=== PATIENT | female | born 1975 | race African-American/Black ===

== ENCOUNTER → 2019-12-21 12:12 | Outpatient (CLI) | payer OTHER, SELFPAY ==
--- NOTE | 2019-12-21 | DI.MRI.S_ITS ---
PROCEDURE: MR FOOT RT WO CON INDICATIONS: Contusion of right foot TECHNIQUE: Noncontrast sagittal T1 spin echo and T2 fast spin echo with fat saturation, long-axis T1 spin echo and T2 fast spin echo with fat saturation, short-axis T1 spin echo and T2 fast spin echo with fat saturation through the forefoot. COMPARISON: None. FINDINGS: Image quality: Excellent. Bones and joints: There is a region of localized bone marrow edema within the medial aspect of the 1st metatarsal head. There is mild bone marrow edema within the proximal aspect of the medial sesamoid without discrete fracture. There is a small joint effusion at the 1st metatarsophalangeal joint. No intraosseous lesions. Soft tissues: The medial phalangeosesamoid and medial metatarsosesamoid ligaments are thickened and attenuated in signal with periligamentous edema and mild partial tearing proximally. Findings are consistent with moderate sprains. There is also edema along the myotendinous junction of the flexor hallucis brevis tendon consistent with a moderate strain. There is associated periarticular soft tissue edema along the 1st metatarsophalangeal joint, most prominent medially. This tracks proximally along the 1st metatarsal. Visualized flexor and extensor tendons otherwise appear intact, without tenosynovitis. The distal insertions of the peroneus brevis and longus tendons appear intact. The principal Lisfranc ligament appears intact. No soft tissue ganglion cysts. There is a small amount of intermetatarsal bursal fluid within the 1st metatarsal interspace and trace fluid in the 2nd and 3rd interspaces. Sagittal images demonstrate attenuated appearance of the plantar plate at the 1st metatarsophalangeal joint suggestive of a mild sprain. IMPRESSION: 1. Moderate sprains of the medial phalangeosesamoid and medial metatarsosesamoid ligaments at the 1st metatarsophalangeal joint as well as moderate strain of the flexor hallucis brevis. Associated periarticular soft tissue edema demonstrated. The constellation of findings are compatible with sequelae of a capsular sprain. 2. Mild bone marrow edema medially within the 1st metatarsal head is compatible with a bone contusion or nondisplaced avulsion injury. 3. Mild bone marrow edema proximally in the medial sesamoid is also compatible with bone contusion or reactive changes from a nondisplaced avulsion injury. Dictated by: Abran Lindquist M.D. on 12/21/2019 at 14:16 Approved by: Abran Lindquist M.D. on 12/21/2019 at 14:57
--- NOTE | 2019-12-21 | DI.MRI.S_ITS ---
PROCEDURE: MR ANKLE RT WO CON INDICATIONS: Contusion of right foot TECHNIQUE: Noncontrast sagittal T1 spin echo and T2 fast spin echo with fat saturation, axial proton density fast spin echo and T2 fast spin echo with fat saturation, coronal T1 spin echo and T2 fast spin echo with fat saturation through the ankle/hindfoot. COMPARISON: None. FINDINGS: Image quality: There is mild inhomogeneous fat saturation. Bones and joints: There is mild periarticular bone marrow edema within the calyces and calcaneus along the medial subtalar joint likely representing reactive changes associated with ganglion cyst formation versus sequelae of a bone contusion. No hindfoot coalitions. No osteochondral injuries of the talar dome. There are small subtalar and tibiotalar joint effusions. Medial structures: The posterior tibialis, flexor digitorum longus, and flexor hallucis longus tendons are intact with minimal tenosynovial fluid. There is a lobulated cyst within the medial aspect of the tarsal tunnel, measuring up to 1.6 cm with mild mass effect on adjacent neurovascular structures. The deltoid and spring ligaments appear intact. Lateral structures: The anterior talofibular, calcaneofibular, and posterior talofibular ligaments appear intact. More superiorly, the anterior and posterior tibiofibular ligaments also appear intact, as is the intermalleolar ligament. The tibiofibular syndesmosis is normal in width at 2 mm or less. The peroneus longus and brevis tendons demonstrate normal location and morphology. Adjacent bony peroneal tubercle and retrotrochlear prominence are normal in size. The sinus tarsi demonstrates preserved fat signal with mild edema suggestive of mild ligamentous sprains. The calcaneonavicular and calcaneocuboid components of the bifurcate ligament appear intact. The dorsal calcaneocuboid ligament appears intact. Anterior structures: The tibialis anterior, extensor hallucis longus, and extensor digitorum longus tendons appear intact. The dorsal talonavicular ligament appears intact. Posterior and plantar structures: Achilles tendon is intact. Medial and lateral bands of the plantar fascia are of normal thickness. No abductor digiti quinti muscle atrophy to suggest Lambert neuropathy. IMPRESSION: 1. Mild periarticular bone marrow edema along the medial subtalar joint compatible with reactive changes secondary to ganglion formation versus a bone contusion. No discrete fracture. 2. Lobulated cyst within the medial aspect of tarsal tunnel suggestive of a ganglion cyst with mild associated mass effect. 3. Mild edema in the sinus tarsi suggestive of mild ligamentous sprains. Dictated by: Abran Lindquist M.D. on 12/21/2019 at 23:36 Approved by: Abran Lindquist M.D. on 12/21/2019 at 23:46
== END ==
PROVIDERS: PCP Physician Assistant Medical; Referring Provider Physician Assistant Medical; Visit Provider Physician Assistant Medical
DX: S90.31XA Contusion of right foot, initial encounter (principal); S93.691A Other sprain of right foot, initial encounter; S96.811A Strain of other specified muscles and tendons at ankle and foot level, right foot, initial encounter; X58.XXXA Exposure to other specified factors, initial encounter
CPT/HCPCS: 73718; 73721